=== PATIENT | female | born 1950 | race Caucasian/White ===

== ENCOUNTER → 2023-11-17 07:36 | Outpatient (REF) | payer MEDICARE, BC, SELFPAY ==
[2023-11-17 08:11] LABS: % Basophils 0.9 % (0-2); % Eosinophils 3.9 % (0-6); % Immature Granulocytes 1.4 % (0-0.5); % Monocytes 9.4 % (1.7-9.3); % Neutrophils 58.4 % (42.2-75.2); Absolute Basophils 0.1 10^3/uL (0-0.2); Absolute Eosinophils 0.2 10^3/uL (0-0.7); Absolute Immature Granulocytes 0.1 10^3/uL (0-0.05); Absolute Lymphocytes 1.5 10^3/uL (1.2-3.4); Absolute Monocytes 0.5 10^3/uL (0.1-0.6); Absolute Neutrophils 3.3 10^3/uL (1.4-6.5); Hematocrit 44.7 % (37.0-47.0); Hemoglobin 15.7 g/dL (12.0-16.0); Mean Corp Hgb Conc. 35.1 g/dL (33.0-37.0); Mean Corpuscular Hgb 30.5 pg (27.0-31.0); Mean Corpuscular Volume 86.8 fL (81.0-99.0); Mean Platelet Volume 9.5 fL (7.4-10.4); Nucleated Red Blood Cells % 0 %; Platelet Count 240 10^3/uL (130-400); Red Blood Cell Count 5.15 10^6/uL (4.20-5.40); Red Cell Dist. Width 13.5 % (11.5-14.5); White Blood Cell Count 5.6 10^3/uL (4.8-10.8)
[2023-11-17 09:10] LABS: Glycohemoglobin (HgbA1c) 6.3 % (4.0-5.6)
[2023-11-17 09:18] LABS: ALT (SGPT) 43 U/L (0-35); AST (SGOT) 34 U/L (14-36); Albumin 4.3 g/dl (3.5-5.0); Alkaline Phosphatase 95 U/L (38-126); Blood Urea Nitrogen 18 mg/dl (7-17); Calcium 9.4 mg/dl (8.4-10.2); Carbon Dioxide 28 mmol/L (22-30); Chloride 104 mmol/L (98-107); Glucose 125 mg/dl (70-99); HDL Cholesterol 59 mg/dl; Iron 120 ug/dl (37-170); LDL Cholesterol, Calculated 174 mg/dl; Potassium 4.2 mmol/L (3.5-5.1); Sodium 139 mmol/L (135-145); Total Bilirubin 0.8 mg/dl (0.2-1.3); Total Cholesterol 276 mg/dl (50-199); Total Protein 7.2 g/dl (6.3-8.2); Triglyceride 218 mg/dl (10-149); Very Low Density Lipoprotein 43 mg/dl (0-30); eGFR > 60.00
[2023-11-17 09:28] LABS: Percent Saturation 40 % (20-50); Total Iron Binding Capacity 298 ug/dl (265-497)
[2023-11-17 09:35] LABS: TSH Reflex To Free T4 2.54 uIU/ml (0.47-4.68)
== END ==
LOC: REG 07:36
PROVIDERS: ATTENDING PHYSICIAN Registered Nurse Ambulatory Care
DX: E83.110 Hereditary hemochromatosis (principal); E78.2 Mixed hyperlipidemia; Z78.9 Other specified health status
CPT/HCPCS: 36415; 80053; 80061; 82728; 83036; 83540; 83550; 84443; 85025

== ENCOUNTER → 2024-04-27 07:21 | Outpatient (REF) | payer MEDICARE, BC, SELFPAY ==
[2024-04-27 08:19] LABS: % Basophils 0.9 % (0-2); % Eosinophils 5.1 % (0-6); % Immature Granulocytes 1.1 % (0-0.5); % Lymphocytes 26.4 % (20.5-51.1); % Monocytes 8.7 % (1.7-9.3); % Neutrophils 57.8 % (42.2-75.2); Absolute Basophils 0.1 10^3/uL (0-0.2); Absolute Eosinophils 0.3 10^3/uL (0-0.7); Absolute Immature Granulocytes 0.1 10^3/uL (0-0.05); Absolute Lymphocytes 1.5 10^3/uL (1.2-3.4); Absolute Monocytes 0.5 10^3/uL (0.1-0.6); Absolute Neutrophils 3.2 10^3/uL (1.4-6.5); Hematocrit 42.6 % (37.0-47.0); Hemoglobin 15.3 g/dL (12.0-16.0); Mean Corp Hgb Conc. 35.9 g/dL (33.0-37.0); Mean Corpuscular Hgb 30.5 pg (27.0-31.0); Mean Platelet Volume 9.9 fL (7.4-10.4); Nucleated Red Blood Cells % 0 %; Platelet Count 235 10^3/uL (130-400); Red Blood Cell Count 5.01 10^6/uL (4.20-5.40); Red Cell Dist. Width 13.2 % (11.5-14.5); White Blood Cell Count 5.5 10^3/uL (4.8-10.8)
[2024-04-27 08:59] LABS: ALT (SGPT) 26 U/L (0-35); AST (SGOT) 25 U/L (14-36); Albumin 4.3 g/dl (3.5-5.0); Alkaline Phosphatase 83 U/L (38-126); Blood Urea Nitrogen 16 mg/dl (7-17); Calcium 9.6 mg/dl (8.4-10.2); Carbon Dioxide 25 mmol/L (22-30); Chloride 107 mmol/L (98-107); Direct Bilirubin 0.2 mg/dl (0.0-0.4); Glucose 126 mg/dl (70-99); Sodium 139 mmol/L (135-145); Total Bilirubin 0.8 mg/dl (0.2-1.3); Total Protein 6.9 g/dl (6.3-8.2); eGFR > 60.00
[2024-04-27 11:12] LABS: Glycohemoglobin (HgbA1c) 6.1 % (4.0-5.6)
== END ==
LOC: REG 07:21
PROVIDERS: ATTENDING PHYSICIAN Family Medicine
DX: E78.2 Mixed hyperlipidemia (principal); E83.110 Hereditary hemochromatosis; E11.69 Type 2 diabetes mellitus with other specified complication
CPT/HCPCS: 36415; 80053; 82248; 82728; 83036; 85025

== ENCOUNTER → 2024-09-01 07:38 | Outpatient (REF) | payer MEDICARE, BC, SELFPAY ==
[2024-09-01 08:21] LABS: % Basophils 0.7 % (0-2); % Eosinophils 3.1 % (0-6); % Immature Granulocytes 0.5 % (0-0.5); % Lymphocytes 24.6 % (20.5-51.1); % Monocytes 8.4 % (1.7-9.3); % Neutrophils 62.7 % (42.2-75.2); Absolute Eosinophils 0.2 10^3/uL (0-0.7); Absolute Lymphocytes 1.4 10^3/uL (1.2-3.4); Absolute Monocytes 0.5 10^3/uL (0.1-0.6); Absolute Neutrophils 3.4 10^3/uL (1.4-6.5); Hematocrit 49.4 % (37.0-47.0); Mean Corp Hgb Conc. 34.4 g/dL (33.0-37.0); Mean Corpuscular Hgb 30.2 pg (27.0-31.0); Mean Corpuscular Volume 87.9 fL (81.0-99.0); Mean Platelet Volume 9.7 fL (7.4-10.4); Nucleated Red Blood Cells % 0 %; Platelet Count 278 10^3/uL (130-400); Red Blood Cell Count 5.62 10^6/uL (4.20-5.40); Red Cell Dist. Width 12.8 % (11.5-14.5); White Blood Cell Count 5.5 10^3/uL (4.8-10.8)
[2024-09-01 08:47] LABS: Microalbumin, Random Urine 1.8 mg/dl (0.6-1.7); Microalbumin/creatinine Ratio 7.5 mg/g
[2024-09-01 09:04] LABS: Glycohemoglobin (HgbA1c) 6.2 % (4.0-5.6)
[2024-09-01 09:12] LABS: ALT (SGPT) 36 U/L (0-35); AST (SGOT) 29 U/L (14-36); Albumin 4.8 g/dl (3.5-5.0); Alkaline Phosphatase 70 U/L (38-126); Blood Urea Nitrogen 17 mg/dl (7-17); Calcium 9.6 mg/dl (8.4-10.2); Carbon Dioxide 29 mmol/L (22-30); Chloride 101 mmol/L (98-107); Glucose 145 mg/dl (70-99); HDL Cholesterol 68 mg/dl; Iron 121 ug/dl (37-170); LDL Cholesterol, Calculated 157 mg/dl; Potassium 4.1 mmol/L (3.5-5.1); Sodium 143 mmol/L (135-145); Total Bilirubin 0.7 mg/dl (0.2-1.3); Total Cholesterol 266 mg/dl (50-199); Total Protein 7.8 g/dl (6.3-8.2); Triglyceride 208 mg/dl (10-149); Very Low Density Lipoprotein 41 mg/dl (0-30); eGFR > 60.00
[2024-09-03 10:07] LABS: Percent Saturation 40 % (20-50); Total Iron Binding Capacity 300 ug/dl (265-497)
== END ==
LOC: REG 07:38
PROVIDERS: ATTENDING PHYSICIAN Family Medicine
DX: E11.69 Type 2 diabetes mellitus with other specified complication (principal); E78.2 Mixed hyperlipidemia
CPT/HCPCS: 36415; 80053; 80061; 82043; 82570; 82728; 83036; 83540; 83550; 85025

== ENCOUNTER → 2024-12-29 10:18 | Outpatient (REF) | payer MEDICARE, BC, SELFPAY ==
[2024-12-29 11:00] LABS: % Basophils 0.8 % (0-2); % Eosinophils 4.2 % (0-6); % Immature Granulocytes 0.6 % (0-0.5); % Lymphocytes 27.6 % (20.5-51.1); % Monocytes 9.8 % (1.7-9.3); Absolute Eosinophils 0.2 10^3/uL (0-0.7); Absolute Lymphocytes 1.4 10^3/uL (1.2-3.4); Absolute Monocytes 0.5 10^3/uL (0.1-0.6); Hematocrit 46.4 % (37.0-47.0); Hemoglobin 15.9 g/dL (12.0-16.0); Mean Corp Hgb Conc. 34.3 g/dL (33.0-37.0); Mean Corpuscular Hgb 30.4 pg (27.0-31.0); Mean Corpuscular Volume 88.7 fL (81.0-99.0); Mean Platelet Volume 9.8 fL (7.4-10.4); Nucleated Red Blood Cells % 0 %; Platelet Count 235 10^3/uL (130-400); Red Blood Cell Count 5.23 10^6/uL (4.20-5.40); Red Cell Dist. Width 13.2 % (11.5-14.5); White Blood Cell Count 5.2 10^3/uL (4.8-10.8)
[2024-12-29 12:01] LABS: Iron 98 ug/dl (37-170)
[2024-12-29 12:10] LABS: Percent Saturation 34 % (20-50); Total Iron Binding Capacity 286 ug/dl (265-497)
== END ==
LOC: REG 10:18
PROVIDERS: ATTENDING PHYSICIAN Family Medicine
DX: E83.110 Hereditary hemochromatosis (principal); R71.8 Other abnormality of red blood cells
CPT/HCPCS: 36415; 82728; 83540; 83550; 85025

== ENCOUNTER → 2025-01-04 11:07 | Outpatient (REF) | payer MEDICARE, BC, SELFPAY | LOC: HWWDC 11:07 | PROVIDERS: ATTENDING PHYSICIAN Family Medicine; REFERRING PHYSICIAN Obstetrics & Gynecology | DX: Z12.31 Encounter for screening mammogram for malignant neoplasm of breast (principal) | CPT/HCPCS: 77063; 77067 ==

== ENCOUNTER → 2025-04-19 07:13 | Outpatient (REF) | payer MEDICARE, BC, SELFPAY ==
[2025-04-19 08:11] LABS: Hematocrit 46.0 % (37.0-47.0); Hemoglobin 15.7 g/dL (12.0-16.0); Mean Corp Hgb Conc. 34.1 g/dL (33.0-37.0); Mean Corpuscular Volume 87.5 fL (81.0-99.0); Nucleated Red Blood Cells % 0 %; Platelet Count 236 10^3/uL (130-400); Red Cell Dist. Width 13.3 % (11.5-14.5)
[2025-04-19 08:18] LABS: Microalb - Urine Creatinine 314.100 mg/dl
[2025-04-19 08:23] LABS: Microalbumin, Random Urine 2.0 mg/dl (0.6-1.7)
[2025-04-19 08:37] LABS: ALT (SGPT) 27 U/L (0-35); AST (SGOT) 22 U/L (14-36); Albumin 4.6 g/dl (3.5-5.0); Alkaline Phosphatase 66 U/L (38-126); Blood Urea Nitrogen 21 mg/dl (7-17); Calcium 9.6 mg/dl (8.4-10.2); Carbon Dioxide 30 mmol/L (22-30); Chloride 105 mmol/L (98-107); Glucose 122 mg/dl (70-99); HDL Cholesterol 59 mg/dl; Iron 130 ug/dl (37-170); LDL Cholesterol, Calculated 189 mg/dl; Potassium 4.1 mmol/L (3.5-5.1); Sodium 141 mmol/L (135-145); Total Protein 7.4 g/dl (6.3-8.2); Very Low Density Lipoprotein 33 mg/dl (0-30); eGFR > 60.00
[2025-04-19 09:14] LABS: Ferritin 114.0 ng/ml (11.1-264.0)
[2025-04-19 09:35] LABS: Glycohemoglobin (HgbA1c) 5.9 % (4.0-5.6)
== END ==
LOC: REG 07:13
PROVIDERS: ATTENDING PHYSICIAN Family Medicine
DX: E11.69 Type 2 diabetes mellitus with other specified complication (principal); E78.2 Mixed hyperlipidemia; E83.110 Hereditary hemochromatosis
CPT/HCPCS: 36415; 80053; 80061; 82043; 82570; 82728; 83036; 83540; 85025

== ENCOUNTER → 2025-08-24 11:50 | Outpatient (REF) | payer MEDICARE, BC, SELFPAY ==
[2025-08-24 12:43] LABS: Hematocrit 46.8 % (37.0-47.0); Hemoglobin 15.7 g/dL (12.0-16.0); Mean Corp Hgb Conc. 33.5 g/dL (33.0-37.0); Mean Corpuscular Volume 90.0 fL (81.0-99.0); Nucleated Red Blood Cells % 0 %; Platelet Count 234 10^3/uL (130-400); Red Cell Dist. Width 12.9 % (11.5-14.5)
[2025-08-24 13:00] LABS: Blood Urea Nitrogen 19 mg/dl (7-17); Calcium 9.2 mg/dl (8.4-10.2); Carbon Dioxide 30 mmol/L (22-30); Chloride 103 mmol/L (98-107); Glucose 110 mg/dl (70-99); Iron 84 ug/dl (37-170); Potassium 3.9 mmol/L (3.5-5.1); Sodium 137 mmol/L (135-145); eGFR > 60.00
[2025-08-24 13:23] LABS: Glycohemoglobin (HgbA1c) 5.9 % (4.0-5.9)
[2025-08-24 13:35] LABS: Ferritin 125.0 ng/ml (11.1-264.0)
== END ==
LOC: REG 11:50
PROVIDERS: ATTENDING PHYSICIAN Family Medicine
DX: E11.69 Type 2 diabetes mellitus with other specified complication (principal); E83.110 Hereditary hemochromatosis; R71.8 Other abnormality of red blood cells
CPT/HCPCS: 36415; 80048; 82728; 83036; 83540; 85025